=== PATIENT | female | born 1985 | race Caucasian/White ===

== ENCOUNTER 2018-02-12 15:56 | Emergency (ER) | payer OTHER, MEDICAID ==
[~2018-02-12] VITALS: Ht 167.6 cm; Wt 63.5 kg
[2018-02-12] MEDS ORDERED: PROZAC10 MG ORAL (15:58)
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
[2018-02-12 16:26] LABS: BASOPHILS % (AUTO) 0.9 % (0.0-2.0); EOSINOPHILS % (AUTO) 0.7 % (0.0-3.0); HEMATOCRIT 43.8 % (37.0-47.0); HEMOGLOBIN 14.8 G/DL (12.0-16.0); LYMPHOCYTES % (AUTO) 25.7 % (20.0-45.0); MEAN CORPUSCULAR VOLUME 90 FL (80-99); MONOCYTES % (AUTO) 10.1 % (1.0-10.0); NEUTROPHILS % (AUTO) 62.7 % (45.0-75.0); PLATELET COUNT 242 K/UL (150-450); RED BLOOD COUNT 4.85 M/UL (4.20-5.40); RED CELL DISTRIBUTION WIDTH 12.3 % (11.6-14.8); WHITE BLOOD COUNT 7.2 K/UL (4.8-10.8)
[2018-02-12 16:39] VITALS: BP 134/86
[2018-02-12 16:48] LABS: POTASSIUM 3.4 MMOL/L (3.5-5.1)
[2018-02-12 16:52] LABS: ALANINE AMINOTRANSFERASE 50 U/L (12-78); ALBUMIN 4.2 G/DL (3.4-5.0); ALBUMIN/GLOBULIN RATIO 1.3 (1.0-2.7); ALKALINE PHOSPHATASE 50 U/L (46-116); ANION GAP 14 mmol/L (5-15); ASPARTATE AMINO TRANSFERASE 27 U/L (15-37); BILIRUBIN,TOTAL 0.6 MG/DL (0.2-1.0); BLOOD UREA NITROGEN 21 mg/dL (7-18); CALCIUM 9.2 MG/DL (8.5-10.1); CARBON DIOXIDE 25 MMOL/L (21-32); CHLORIDE 103 MMOL/L (98-107); CREATININE 0.9 MG/DL (0.55-1.30); SODIUM 142 MMOL/L (136-145)
--- NOTE | 2018-02-12 16:57 | Diagnostic Imaging Report ---
Indications: Altered mental status Technique: Spiral acquisitions obtained through the brain. Angled axial and coronal 5 x 5 mm slices were reconstructed. Total dose length product 1467 mGycm. CTDI vol(s) 70 mGy. Dose reduction achieved using automated exposure control Comparison: Brain MRI dated 09/20/2006 Findings: No acute intracranial hemorrhage or edema. No mass effect or midline shift. Normal wong-white differentiation. Visualized orbits and sinuses are unremarkable. Intact calvarium Impression: Negative The CT scanner at [facility] is accredited by the [employer] and the scans are performed using protocols designed to limit radiation exposure to as low as reasonably achievable to attain images of sufficient resolution adequate for diagnostic evaluation.
--- NOTE | 2018-02-12 17:06 | Diagnostic Imaging Report ---
Indication: Pain, trauma, status post fall Technique: Spiral acquisitions obtained through the cervical spine. No IV contrast utilized. Multiplanar reconstructions were generated. Total dose length product 646 mGycm. CTDIvol(s) 32 mGy. Dose reduction achieved using automated exposure control. Comparison: none Findings: No prevertebral soft tissue swelling. No acute fractures. No dislocations. Vertebral body heights are preserved. Disc spaces are preserved. No significant disc bulge or protrusion, spinal stenosis, or neural foraminal stenosis demonstrated. The included lung apices are clear. The included extra spinal soft tissues are unremarkable. Impression: No acute bony trauma or significant abnormality The CT scanner at [facility] is accredited by the [employer] and the scans are performed using protocols designed to limit radiation exposure to as low as reasonably achievable to attain images of sufficient resolution adequate for diagnostic evaluation.
[2018-02-12 17:50] VITALS: BP 134/86
== END 2018-02-12 17:51 ==
LOC: EDBD 15:56 → EMR 16:08
DX: S01.511A Laceration without foreign body of lip, initial encounter (principal); Y04.0XXA Assault by unarmed brawl or fight, initial encounter; Y92.009 Unspecified place in unspecified non-institutional (private) residence as the place of occurrence of the external cause; F19.10 Other psychoactive substance abuse, uncomplicated; R41.82 Altered mental status, unspecified
CPT/HCPCS: 12011; 36415; 70450; 72125; 80053; 80307; 81025; 85025; 99291; G0480; 80329